=== PATIENT | female | born 1975 | race Caucasian/White ===

== ENCOUNTER 2018-05-20 20:17 | Emergency (ER) | payer OTHER ==
[2018-05-20] MEDS ORDERED: Lidocaine 1% 20 ML MDV INJECT ONE (20:33)
[2018-05-20] MEDS ORDERED: Bacitracin/Neomycin/Polymyxin B Oint 0.9 GM U/D Packet TOP ONE (20:51)
[2018-05-20] MEDS ORDERED: Diphtheria,Pertussis(Acell),Tetanus Vaccine 0.5 ML Syringe IM ONE (20:55)
--- NOTE | 2018-05-20 21:00 | EDM.PDOC ---
ED HPI GENERAL MEDICAL PROBLEM - General Chief Complaint: General Stated Complaint: lip ring stuck Time Seen by Provider: 05/20/18 20:26 Source of Information: Reports: Patient History Limitations: Reports: No Limitations - History of Present Illness INITIAL COMMENTS - FREE TEXT/NARRATIVE: Patient presents to ER with concerns that the post/bead from her lip piercing is now stuck in her lip. Was eating supper tonight when a piece of the piercing came off the back and the stud portion of it got caught in her lip. She has tried to push it out at work and has not been successful. Onset: Today, Sudden Duration: Hour(s): Location: Reports: Face Quality: Reports: Ache Severity: Mild Lip Pain Score (Numeric/FACES): 4 - Related Data Allergies Allergy/AdvReac Type Severity Reaction Status Date / Time amoxicillin [From Augmentin] Allergy Diarrhea Verified 05/20/18 20:20 clavulanic acid Allergy Diarrhea Verified 05/20/18 20:20 [From Augmentin] codeine Allergy Shortness Verified 05/20/18 20:20 of Breath Home Meds: Home Meds Ascorbate Calcium [Vitamin C] 1 tab PO DAILY 05/20/18 [History] Cholecalciferol (Vitamin D3) [Vitamin D3] 5,000 units PO DAILY 05/20/18 [History ] Cranberry 500 mg PO DAILY 05/20/18 [History] FLUoxetine HCl [Fluoxetine HCl] 20 mg PO DAILY 05/20/18 [History] L.acidoph,Paracasei, B.lactis [Probiotic] 1 cap PO DAILY 05/20/18 [History] Magnesium 400 mg PO DAILY 05/20/18 [History] Multivitamin with Minerals [Hair, Skin and Nails] 1 tab PO DAILY 05/20/18 [ History] Propranolol [Inderal LA] 60 mg PO DAILY 05/20/18 [History] Vitamin B Complex 1 cap PO DAILY 05/20/18 [History] Past Medical History Neurological History: Reports: Migraines Psychiatric History: Reports: Anxiety, Depression - Past Surgical History GI Surgical History: Reports: Cholecystectomy, Hernia Repair/Other Female Surgical History: Reports: Hysterectomy, Tubal Ligation Social & Family History - Family History Family Medical History: Noncontributory - Tobacco Use Smoking Status *Q: Current Every Day Smoker Years of Tobacco use: 34 Packs/Tins Daily: 0 - Caffeine Use Caffeine Use: Reports: Coffee, Soda ED ROS GENERAL - Review of Systems Review Of Systems: See Below Constitutional: Reports: No Symptoms HEENT: Reports: Other (foreign body in lip) Respiratory: Reports: No Symptoms Cardiovascular: Reports: No Symptoms Endocrine: Reports: No Symptoms GI/Abdominal: Reports: No Symptoms : Reports: No Symptoms ED EXAM, GENERAL - Physical Exam Exam: See Below Exam Limited By: No Limitations General Appearance: Alert, WD/WN, No Apparent Distress Throat/Mouth: Other (patient has noted hole to inner/outer lip from piercing. Can feel foreign object with palpation. ) ED GENERAL MEDICAL PROCEDURES - Additional/Other Procedure(s) Other (Free Text) Procedure(s): Lidocaine 1%, 0.5 ml injected in to lip. Unable to retrieve the piercing. Small incision made with 11 blade scalpel. Did retrieve the post with some difficulty. One suture with 6-0 nylon placed to lip region. patient tolerated well. Course - Vital Signs Last Recorded V/S: Last Vital Signs Temp 98.4 F 05/20/18 20:18 Pulse 78 05/20/18 20:18 Resp 16 05/20/18 20:18 BP 121/77 05/20/18 20:18 Pulse Ox 100 05/20/18 20:18 - Orders/Labs/Meds Orders: Active Orders 24 hr Category Date Time Status Vaccines to be Administered [RC] PER UNIT ROUTINE Care 05/20/18 20:55 Ordered Meds: Medications Discontinued Medications Generic Name Dose Route Start Last Admin Trade Name Freq PRN Reason Stop Dose Admin Diphtheria/Tetanus/Acell Pertussis 0.5 ml 05/20/18 20:55 Adacel IM 05/20/18 20:56 .ONCE ONE Lidocaine HCl 20 ml 05/20/18 20:33 05/20/18 20:34 Xylocaine 1% INJECT 05/20/18 20:34 20 ml ONETIME ONE Administration Neomycin/Polymyxin/Bacitracin 1 each 05/20/18 20:51 05/20/18 20:54 Triple Antibiotic Oint TOP 05/20/18 20:52 1 each ONETIME ONE Administration Departure - Departure Time of Disposition: 21:00 Disposition: Home, Self-Care 01 Condition: Good Clinical Impression: Foreign body (FB) in soft tissue - Discharge Information *PRESCRIPTION DRUG MONITORING PROGRAM REVIEWED*: No *COPY OF PRESCRIPTION DRUG MONITORING REPORT IN PATIENT KIERRA: No Forms: ED Department Discharge Additional Instructions: 1. Keep wound clean and dry 2. Triple antibiotic ointment to affected area 3. Suture removal in 5 days 4. Call or follow up with any concerns. - My Orders Last 24 Hours: My Active Orders 05/20/18 20:55 Vaccines to be Administered [RC] PER UNIT ROUTINE - Assessment/Plan Last 24 Hours: My Active Orders 05/20/18 20:55 Vaccines to be Administered [RC] PER UNIT ROUTINE
== END 2018-05-20 21:15 | disposition home or self-care (01) ==
LOC: CC.ED 20:17
DX: M79.5 Residual foreign body in soft tissue (principal); F17.200 Nicotine dependence, unspecified, uncomplicated; Z79.899 Other long term (current) drug therapy; Z90.49 Acquired absence of other specified parts of digestive tract; Z90.710 Acquired absence of both cervix and uterus; Z98.51 Tubal ligation status
CPT/HCPCS: 10120; 90471; 90715; 96372; 99283

== ENCOUNTER 2018-06-01 17:25 | Observation (INO) | payer OTHER ==
[2018-06-01 18:08] LABS: CHLORIDE,CL 100 mEq/L (98-106); SODIUM,NA 136 mEq/L (136-145)
--- NOTE | 2018-06-01 18:16 | EDM.PDOC ---
ED HPI GENERAL MEDICAL PROBLEM - General Chief Complaint: Gastrointestinal Problem Stated Complaint: FLU? Time Seen by Provider: 06/01/18 17:58 Source of Information: Reports: Patient History Limitations: Reports: No Limitations - History of Present Illness INITIAL COMMENTS - FREE TEXT/NARRATIVE: Radha is a 42 yo female who presents to the ED via private vehicle with concerns of nausea, vomiting and diarrhea. She states she has been having diarrhea for the last few days and initially thought it was secondary to IBS. Admits this morning she woke up feeling nauseated. She did go to work today and ended up having diarrhea around 3:00pm. States she has a lot of body aches with it as well. She has some mild diffuse abdominal discomfort but she never thought anything of it. States she hasn't had any respiratory symptoms. Has been really tired and fatigued. Denies any chance of with history of hysterectomy. No urinary symptoms. Last meal included oreo thins around 3:00pm otherwise haven't had anything to eat all day. has been drinking water and a couple sips of coke today. Generalized Pain Score (Numeric/FACES): 6 - Related Data Allergies Allergy/AdvReac Type Severity Reaction Status Date / Time amoxicillin [From Augmentin] Allergy Diarrhea Verified 06/01/18 17:42 clavulanic acid Allergy Diarrhea Verified 06/01/18 17:42 [From Augmentin] codeine Allergy Shortness Verified 06/01/18 17:42 of Breath Home Meds: Home Meds Ascorbate Calcium [Vitamin C] 1 tab PO DAILY 05/20/18 [History] Cholecalciferol (Vitamin D3) [Vitamin D3] 5,000 units PO DAILY 05/20/18 [History ] Cranberry 1,500 mg PO DAILY 05/20/18 [History] FLUoxetine HCl [Fluoxetine HCl] 20 mg PO DAILY 05/20/18 [History] L.acidoph,Paracasei, B.lactis [Probiotic] 1 cap PO DAILY 05/20/18 [History] Magnesium 400 mg PO DAILY 05/20/18 [History] Multivitamin with Minerals [Hair, Skin and Nails] 1 tab PO DAILY 05/20/18 [ History] Propranolol [Inderal LA] 60 mg PO DAILY 05/20/18 [History] Vitamin B Complex 1 cap PO DAILY 05/20/18 [History] Past Medical History Neurological History: Reports: Migraines Psychiatric History: Reports: Anxiety, Depression - Past Surgical History GI Surgical History: Reports: Cholecystectomy, Hernia Repair/Other Female Surgical History: Reports: Hysterectomy, Tubal Ligation Social & Family History - Family History Family Medical History: Noncontributory - Tobacco Use Smoking Status *Q: Current Every Day Smoker Years of Tobacco use: 34 Packs/Tins Daily: 0.2 - Caffeine Use Caffeine Use: Reports: Coffee, Soda - Recreational Drug Use Recreational Drug Use: No ED ROS GENERAL - Review of Systems Review Of Systems: See Below Constitutional: Reports: Chills, Fatigue, Decreased Appetite. Denies: Fever HEENT: Reports: No Symptoms Respiratory: Reports: No Symptoms Cardiovascular: Reports: No Symptoms GI/Abdominal: Reports: Abdominal Pain, Diarrhea, Nausea, Vomiting. Denies: Bloody Stool : Reports: No Symptoms Musculoskeletal: Reports: No Symptoms Skin: Reports: No Symptoms ED EXAM, GI/ABD - Physical Exam Exam: See Below Exam Limited By: No Limitations General Appearance: Alert, Mild Distress Ears: Normal External Exam, Normal Canal, Hearing Grossly Normal, Normal TMs Nose: Normal Inspection, Normal Mucosa, No Blood Throat/Mouth: Normal Inspection, Normal Lips, Normal Teeth, Normal Gums, Normal Oropharynx, No Airway Compromise Head: Atraumatic, Normocephalic Neck: Normal Inspection, Supple, Non-Tender Respiratory/Chest: No Respiratory Distress, Lungs Clear, Normal Breath Sounds, No Accessory Muscle Use Cardiovascular: Regular Rate, Rhythm, No Murmur GI/Abdominal Exam: Normal Bowel Sounds, Soft, No Organomegaly, No Mass, Pelvis Stable, Guarding (RLQ), Tender (RLQ), Other (positive McBurney's point) Extremities: Normal Inspection, No Pedal Edema Neurological: Alert, Oriented, Normal Cognition Psychiatric: Normal Affect, Normal Mood Skin Exam: Warm, Dry, Intact, Normal Color, No Rash Course - Vital Signs Last Recorded V/S: Last Vital Signs Temp 98.4 F 06/01/18 18:26 Pulse 97 06/01/18 17:33 Resp 16 06/01/18 17:33 BP 121/84 06/01/18 17:33 Pulse Ox 100 06/01/18 17:33 - Orders/Labs/Meds Orders: Active Orders 24 hr Category Date Time Status Abdomen Pelvis w Cont [CT] Routine Exams 06/01/18 18:09 Ordered Labs: Laboratory Tests 06/01/18 06/01/18 06/01/18 Range/Units 17:37 17:40 17:40 WBC 15.5 H (5.0-10.0) 10^3/uL RBC 4.83 (4.00-5.50) 10^6/uL Hgb 14.8 (12.0-16.0) g/dL Hct 43.0 (37.0-47.0) % MCV 89.0 (82.0-94.0) fL MCH 30.6 (27.0-32.0) pg MCHC 34.4 (33.0-38.0) g/dL RDW Coeff of Tana 12.5 (11.0-15.0) % Plt Count 233 (150-400) 10^3/uL Add Manual Diff Yes Neutrophils % (Manual) 87 H (35-85) % Band Neutrophils % 4 (0-5) % Lymphocytes % (Manual) 3 L (21-55) % Monocytes % (Manual) 5 (2-12) % Eosinophils % (Manual) 1 (0-5) % Sodium 136 (136-145) mEq/L Potassium 3.6 (3.5-5.0) mEq/L Chloride 100 (98-106) mEq/L Carbon Dioxide 25 (21-32) mmol/L BUN 18 D (7-18) mg/dL Creatinine 0.9 (0.6-1.0) mg/dL Est Cr Clr Drug Dosing 57.30 mL/min Estimated GFR (MDRD) > 60 (>=60) mL/min Glucose 102 H (75-99) mg/dL Calcium 8.8 (8.4-10.1) mg/dL Total Bilirubin 1.0 (0.0-1.0) mg/dL AST 19 (15-37) U/L ALT 28 (12-78) U/L Alkaline Phosphatase 105 (46-116) U/L C-Reactive Protein 0.3 (0.2-0.8) mg/dL Total Protein 8.0 (6.4-8.2) g/dL Albumin 3.9 (3.4-5.0) g/dL Amylase 44 (25-115) U/L Urine Color Yellow (YELLOW) Urine Appearance Clear (CLEAR) Urine pH 5.0 (4.5-8.0) Ur Specific [place] 1.025 H (1.003-1.020) Urine Protein Negative (NEGATIVE) mg/dL Urine Glucose (UA) Negative (NEGATIVE) mg/dL Urine Ketones Trace H (NEGATIVE) mg/dL Urine Occult Blood Trace-lysed H (NEGATIVE) Urine Nitrite Negative (NEGATIVE) Urine Bilirubin Negative (NEGATIVE) Urine Urobilinogen 0.2 (0.2-1.0) EU/dL Ur Leukocyte Esterase Negative (NEGATIVE) Urine RBC 0-5 (0-5) /HPF Urine WBC Not seen (0-5) /HPF Ur Epithelial Cells Few H (NOT SEEN) /HPF Urine Mucus Moderate H (NOT SEEN) /HPF Meds: Medications Discontinued Medications Generic Name Dose Route Start Last Admin Trade Name Freq PRN Reason Stop Dose Admin Iopamidol 100 ml 06/01/18 18:27 06/01/18 18:28 Isovue-300 (61%) IVPUSH 06/01/18 18:28 100 ml ONETIME ONE Administration - Re-Assessments/Exams Free Text/Narrative Re-Assessment/Exam: Reviewed labs and did show leukocytosis. CRP was normal. Urinalysis showed no sign of infection. With elevated WBC and RLQ pain will proceed with CT scan of the abdomen/pelvis to r/o appendicitis and look for any further causes of abdominal discomfort, diarrhea and nausea. Departure - Departure Time of Disposition: 19:43 Disposition: Refer to Observation Clinical Impression: Ileus - Discharge Information Forms: ED Department Discharge - Problem List & Annotations (1) Ileus SNOMED Code(s): 135634237 Code(s): K56.7 - ILEUS, UNSPECIFIED Status: Acute Current Visit: Yes - My Orders Last 24 Hours: My Active Orders 06/01/18 18:09 Abdomen Pelvis w Cont [CT] Routine - Assessment/Plan Admission H&P: Please use this note as an admission H&P Last 24 Hours: My Active Orders 06/01/18 18:09 Abdomen Pelvis w Cont [CT] Routine Plan: Radiologist consulted and stated findings involving the small bowel suggest a generalized ileus pattern. Will admit to Dr. Tracy's services under observation for IV fluids and to remain NPO. Dr. Tracy contacted for admission.
[2018-06-01] MEDS ORDERED: Iopamidol 612 MG/ML 100 ML Bottle IVPUSH ONE (18:27)
[2018-06-01] MEDS ORDERED: Acetaminophen 325 MG Tab PO PRN (20:18)
[2018-06-01] MEDS ORDERED: Ondansetron 4 MG/2 ML SDV IV PRN (20:18)
[2018-06-01] MEDS: Lactated Ringers 1,000 ML IV SCH (20:43)
[2018-06-01] MEDS: Ibuprofen 200 MG Tab PO PRN (20:47)
[2018-06-02] MEDS: Lactated Ringers 1,000 ML IV SCH ×3 (04:41→19:27)
[2018-06-02] MEDS: Ibuprofen 200 MG Tab PO PRN (04:46)
[2018-06-02 07:28] LABS: CHLORIDE,CL 106 mEq/L (98-106); SODIUM,NA 141 mEq/L (136-145)
[2018-06-02] MEDS: FLUOXETINE 20 MG PO SCH (08:29)
[2018-06-02] MEDS: PROPRANOLOL 60 MG PO SCH (08:29)
--- NOTE | 2018-06-02 08:52 | PCM.PN ---
- General Info Date of Service: 06/02/18 Admission Dx/Problem (Free Text): Ileus Functional Status: Reports: Pain Controlled. Denies: Tolerating Diet, Ambulating - Review of Systems General: Reports: Fatigue, Malaise. Denies: Fever, Weakness HEENT: Reports: No Symptoms Pulmonary: Denies: Shortness of Breath, Cough Cardiovascular: Denies: Chest Pain, Edema, Lightheadedness Gastrointestinal: Reports: Abdominal Pain, Nausea. Denies: Diarrhea, Vomiting Genitourinary: Reports: No Symptoms Musculoskeletal: Reports: Joint Pain Skin: Reports: No Symptoms Neurological: Reports: No Symptoms - Patient Data Vitals - Most Recent: Last Vital Signs Temp 99.4 F 06/02/18 08:00 Pulse 70 06/02/18 08:00 Resp 16 06/02/18 08:00 BP 109/68 06/02/18 08:00 Pulse Ox 98 06/02/18 08:00 Weight - Most Recent: 109 lb 12.8 oz I&O - Last 24 Hours: Intake & Output 06/01/18 06/02/18 06/02/18 22:59 06:59 14:59 Intake Total 996 Output Total 1200 Balance -204 Lab Results Last 24 Hours: Laboratory Results - last 24 hr 06/01/18 06/01/18 06/01/18 Range/Units 17:37 17:40 17:40 WBC 15.5 H (5.0-10.0) 10^3/uL RBC 4.83 (4.00-5.50) 10^6/uL Hgb 14.8 (12.0-16.0) g/dL Hct 43.0 (37.0-47.0) % MCV 89.0 (82.0-94.0) fL MCH 30.6 (27.0-32.0) pg MCHC 34.4 (33.0-38.0) g/dL RDW Coeff of Tana 12.5 (11.0-15.0) % Plt Count 233 (150-400) 10^3/uL Neut % (Auto) (35-85) % Lymph % (Auto) (10-55) % [place] % (Auto) (0-16) % Eos % (Auto) (0-5) % Baso % (Auto) (0-3) % Neut # (Auto) (1.80-7.00) 10^3/uL Lymph # (Auto) (1.00-4.80) 10^3/uL [place] # (Auto) (0.00-0.80) 10^3/uL Eos # (Auto) (0.00-0.45) 10^3/uL Baso # (Auto) 10^3/uL Add Manual Diff Yes Neutrophils % (Manual) 87 H (35-85) % Band Neutrophils % 4 (0-5) % Lymphocytes % (Manual) 3 L (21-55) % Monocytes % (Manual) 5 (2-12) % Eosinophils % (Manual) 1 (0-5) % Sodium 136 (136-145) mEq/L Potassium 3.6 (3.5-5.0) mEq/L Chloride 100 (98-106) mEq/L Carbon Dioxide 25 (21-32) mmol/L BUN 18 D (7-18) mg/dL Creatinine 0.9 (0.6-1.0) mg/dL Est Cr Clr Drug Dosing 57.30 mL/min Estimated GFR (MDRD) > 60 (>=60) mL/min Glucose 102 H (75-99) mg/dL Calcium 8.8 (8.4-10.1) mg/dL Total Bilirubin 1.0 (0.0-1.0) mg/dL AST 19 (15-37) U/L ALT 28 (12-78) U/L Alkaline Phosphatase 105 (46-116) U/L C-Reactive Protein 0.3 (0.2-0.8) mg/dL Total Protein 8.0 (6.4-8.2) g/dL Albumin 3.9 (3.4-5.0) g/dL Amylase 44 (25-115) U/L Urine Color Yellow (YELLOW) Urine Appearance Clear (CLEAR) Urine pH 5.0 (4.5-8.0) Ur Specific [place] 1.025 H (1.003-1.020) Urine Protein Negative (NEGATIVE) mg/dL Urine Glucose (UA) Negative (NEGATIVE) mg/dL Urine Ketones Trace H (NEGATIVE) mg/dL Urine Occult Blood Trace-lysed H (NEGATIVE) Urine Nitrite Negative (NEGATIVE) Urine Bilirubin Negative (NEGATIVE) Urine Urobilinogen 0.2 (0.2-1.0) EU/dL Ur Leukocyte Esterase Negative (NEGATIVE) Urine RBC 0-5 (0-5) /HPF Urine WBC Not seen (0-5) /HPF Ur Epithelial Cells Few H (NOT SEEN) /HPF Urine Mucus Moderate H (NOT SEEN) /HPF 06/02/18 06/02/18 Range/Units 06:55 06:55 WBC 7.6 (5.0-10.0) 10^3/uL RBC 4.25 (4.00-5.50) 10^6/uL Hgb 13.0 (12.0-16.0) g/dL Hct 38.0 (37.0-47.0) % MCV 89.4 (82.0-94.0) fL MCH 30.6 (27.0-32.0) pg MCHC 34.2 (33.0-38.0) g/dL RDW Coeff of Tana 12.5 (11.0-15.0) % Plt Count 196 (150-400) 10^3/uL Neut % (Auto) 76.8 (35-85) % Lymph % (Auto) 10.5 (10-55) % [place] % (Auto) 11.0 (0-16) % Eos % (Auto) 1.6 (0-5) % Baso % (Auto) 0.1 (0-3) % Neut # (Auto) 5.87 (1.80-7.00) 10^3/uL Lymph # (Auto) 0.80 L (1.00-4.80) 10^3/uL [place] # (Auto) 0.84 H (0.00-0.80) 10^3/uL Eos # (Auto) 0.12 (0.00-0.45) 10^3/uL Baso # (Auto) 0.01 10^3/uL Add Manual Diff Neutrophils % (Manual) (35-85) % Band Neutrophils % (0-5) % Lymphocytes % (Manual) (21-55) % Monocytes % (Manual) (2-12) % Eosinophils % (Manual) (0-5) % Sodium 141 (136-145) mEq/L Potassium 4.0 (3.5-5.0) mEq/L Chloride 106 (98-106) mEq/L Carbon Dioxide 28 (21-32) mmol/L BUN 10 (7-18) mg/dL Creatinine 0.8 (0.6-1.0) mg/dL Est Cr Clr Drug Dosing 64.46 mL/min Estimated GFR (MDRD) > 60 (>=60) mL/min Glucose 90 (75-99) mg/dL Calcium 8.4 (8.4-10.1) mg/dL Total Bilirubin (0.0-1.0) mg/dL AST (15-37) U/L ALT (12-78) U/L Alkaline Phosphatase (46-116) U/L C-Reactive Protein 3.0 H (0.2-0.8) mg/dL Total Protein (6.4-8.2) g/dL Albumin (3.4-5.0) g/dL Amylase (25-115) U/L Urine Color (YELLOW) Urine Appearance (CLEAR) Urine pH (4.5-8.0) Ur Specific [place] (1.003-1.020) Urine Protein (NEGATIVE) mg/dL Urine Glucose (UA) (NEGATIVE) mg/dL Urine Ketones (NEGATIVE) mg/dL Urine Occult Blood (NEGATIVE) Urine Nitrite (NEGATIVE) Urine Bilirubin (NEGATIVE) Urine Urobilinogen (0.2-1.0) EU/dL Ur Leukocyte Esterase (NEGATIVE) Urine RBC (0-5) /HPF Urine WBC (0-5) /HPF Ur Epithelial Cells (NOT SEEN) /HPF Urine Mucus (NOT SEEN) /HPF [place]wn Results Last 24 Hours: Microbiology 06/01/18 17:40 Influenza Type A Antigen Screen - Final Nasal, Unspecified NEGATIVE INFLUENZA A VIRUS AG Influenza Type B Antigen Screen - Final NEGATIVE INFLUENZA B VIRUS AG Med Orders - Current: Current Medications Acetaminophen (Tylenol) 650 mg PO Q4H PRN PRN Reason: Pain (Mild 1-3)/fever Fluoxetine HCl (Prozac) 20 mg PO DAILY [facility] Last Admin: 06/02/18 08:29 Dose: 20 mg Lactated Ringer's (Ringers, Lactated) 1,000 mls @ 125 mls/hr IV ASDIRECTED [facility] Last Admin: 06/02/18 04:41 Dose: 125 mls/hr Ibuprofen (Motrin) 400 mg PO Q6H PRN PRN Reason: Pain (mild 1-3) Last Admin: 06/02/18 04:46 Dose: 400 mg Ondansetron HCl (Zofran) 4 mg IV Q4H PRN PRN Reason: Nausea/Vomiting Last Admin: 06/01/18 20:44 Dose: 4 mg Propranolol HCl (Inderal La) 60 mg PO DAILY [facility] Last Admin: 06/02/18 08:29 Dose: 60 mg Discontinued Medications Iopamidol (Isovue-300 (61%)) 100 ml IVPUSH ONETIME ONE Stop: 06/01/18 18:28 Last Admin: 06/01/18 18:28 Dose: 100 ml - Exam General: Alert, Oriented HEENT: Mucous Membr. Moist/[place] Neck: Supple Lungs: Clear to Auscultation, Normal Respiratory Effort Cardiovascular: Regular Rate, Regular Rhythm GI/Abdominal Exam: Normal Bowel Sounds, Soft, Non-Tender Extremities: Normal Inspection, No Pedal Edema Skin: Warm, Dry Neurological: No New Focal Deficit - Problem List & Annotations (1) Ileus SNOMED Code(s): 251311019 Code(s): K56.7 - ILEUS, UNSPECIFIED Status: Acute Priority: High Current Visit: Yes - Problem List Review Problem List Initiated/Reviewed/Updated: Yes - My Orders Last 24 Hours: My Active Orders 06/02/18 08:34 Ambulate [RC] ASDIRECTED 06/02/18 Breakfast Clear Liquid Diet [DIET] - Assessment Assessment:: Ileus - Plan Plan:: Patient feeling somewhat better this am. States still sore. Low grade fevers. Has not yet passed flatus. No diarrhea this am. Has been kept NPO since admit. Does still get nauseated at times, groggy this am. Labs today show normal WBC of 7.6, CRP of 3.0. Will start clear liquids and see how she tolerates them. Ambulate in halls. Probable discharge home tomorrow.
[2018-06-03] MEDS: Lactated Ringers 1,000 ML IV SCH (03:28)
[2018-06-03] MEDS: PROPRANOLOL 60 MG PO SCH (07:46)
[2018-06-03] MEDS: FLUOXETINE 20 MG PO SCH (07:46)
--- NOTE | 2018-06-03 14:08 | PCM.DCSUM1 ---
Discharge Summary - Hospital Course Free Text/Narrative:: Patient presented to ER with concerns of nausea, vomiting and diarrhea. She has a history of IBS so states "my stomach never feels good" but had been having diarrhea for the last few days prior. Today was nauseated, body aches, diffuse abdominal discomfort. No respiratory symptoms. No fever or fatigue. No urinary symptoms. Unable to eat or drink throughout the day due to nausea. Labs did show leukocytosis, CRP normal. UA negative. CT scan of the abdomen done to rule out appendicitis. Findings suggest ileus, inflammatory changes in the small bowel. Diagnosis: Stroke: No Modified [place] Scale: No Symptoms at All Modified Nilda Scale Score: 0 - Discharge Data Discharge Date: 06/03/18 Discharge Disposition: Home, Self-Care 01 Condition: Good - Discharge Diagnosis/Problem(s) (1) Ileus SNOMED Code(s): 840538414 ICD Code: K56.7 - ILEUS, UNSPECIFIED Status: Acute Priority: High - Patient Summary/Data Complications: none Hospital Course: Patient doing well today. Labs have normalized, WBC down to 7.6. CRP negative. Is passing flatus, small loose stools. Minimal abdominal pain. Tolerated breakfast today. Afebrile. Stool samples negative. Abdomen is soft , nontender, nondistended today. As her CT did show concern for inflammatory changes in the small bowel with concerns could be related to Crohn's, will arrange for GI consult on discharge from hospital. Follow up next week for hospital recheck. - Patient Instructions Diet: Usual Diet as Tolerated Activity: As Tolerated - Discharge Plan *PRESCRIPTION DRUG MONITORING PROGRAM REVIEWED*: No *COPY OF PRESCRIPTION DRUG MONITORING REPORT IN PATIENT KIERRA: No Home Medications: Home Meds Ascorbate Calcium [Vitamin C] 1 tab PO DAILY 05/20/18 [History] Cholecalciferol (Vitamin D3) [Vitamin D3] 5,000 units PO DAILY 05/20/18 [History ] Cranberry 1,500 mg PO DAILY 05/20/18 [History] FLUoxetine HCl [Fluoxetine HCl] 20 mg PO DAILY 05/20/18 [History] L.acidoph,Paracasei, B.lactis [Probiotic] 1 cap PO DAILY 05/20/18 [History] Magnesium 400 mg PO DAILY 05/20/18 [History] Multivitamin with Minerals [Hair, Skin and Nails] 1 tab PO DAILY 05/20/18 [ History] Propranolol [Inderal LA] 60 mg PO DAILY 05/20/18 [History] Vitamin B Complex 1 cap PO DAILY 05/20/18 [History] Forms: ED Department Discharge Referrals: Eda Castanon PA [Primary Care Provider] - (hospital follow up in 7 days ) - Discharge Summary/Plan Comment DC Time >30 min.: No - General Info Date of Service: 06/03/18 Admission Dx/Problem (Free Text: Ileus Functional Status: Reports: Pain Controlled, Tolerating Diet, Ambulating - Review of Systems General: Denies: Fever, Weakness, Fatigue, Malaise HEENT: Reports: No Symptoms Pulmonary: Denies: Shortness of Breath, Cough Cardiovascular: Denies: Chest Pain, Edema, Lightheadedness Gastrointestinal: Reports: Diarrhea. Denies: Abdominal Pain, Nausea, Vomiting Genitourinary: Reports: No Symptoms Musculoskeletal: Reports: No Symptoms Skin: Reports: No Symptoms Neurological: Reports: No Symptoms - Patient Data Vitals - Most Recent: Last Vital Signs Temp 98.1 F 06/03/18 07:54 Pulse 63 06/03/18 07:54 Resp 16 06/03/18 07:54 BP 108/64 06/03/18 07:54 Pulse Ox 99 06/03/18 07:54 Weight - Most Recent: 109 lb 12.8 oz I&O - Last 24 hours: Intake & Output 06/02/18 06/03/18 06/03/18 22:59 06:59 14:59 Intake Total 1306 1300 Output Total 3400 2300 Balance -2094 -1000 Med Orders - Current: Current Medications Discontinued Medications Acetaminophen (Tylenol) 650 mg PO Q4H PRN PRN Reason: Pain (Mild 1-3)/fever Fluoxetine HCl (Prozac) 20 mg PO DAILY [facility] Last Admin: 06/03/18 07:46 Dose: 20 mg Lactated Ringer's (Ringers, Lactated) 1,000 mls @ 125 mls/hr IV ASDIRECTED [facility] Last Admin: 06/03/18 03:28 Dose: 125 mls/hr Ibuprofen (Motrin) 400 mg PO Q6H PRN PRN Reason: Pain (mild 1-3) Last Admin: 06/02/18 04:46 Dose: 400 mg Iopamidol (Isovue-300 (61%)) 100 ml IVPUSH ONETIME ONE Stop: 06/01/18 18:28 Last Admin: 06/01/18 18:28 Dose: 100 ml Ondansetron HCl (Zofran) 4 mg IV Q4H PRN PRN Reason: Nausea/Vomiting Last Admin: 06/01/18 20:44 Dose: 4 mg Propranolol HCl (Inderal La) 60 mg PO DAILY [facility] Last Admin: 06/03/18 07:46 Dose: 60 mg - Exam General: Reports: Alert, Oriented HEENT: Reports: Mucous Membr. Moist/[place] Neck: Reports: Supple Lungs: Reports: Clear to Auscultation, Normal Respiratory Effort Cardiovascular: Reports: Regular Rate, Regular Rhythm GI/Abdominal Exam: Normal Bowel Sounds, Soft, Non-Tender Extremities: Normal Inspection, No Pedal Edema Skin: Reports: Warm, Dry Neurological: Reports: No New Focal Deficit
== END 2018-06-03 09:50 | disposition home or self-care (01) ==
LOC: CC.ED 17:25 → CC.MS 19:47 → UNDOADMOB 19:47 → CC.MS 19:48
PROVIDERS: ADMIT Physician Assistant Medical; ATTEND Family Medicine
DX: K56.7 Ileus, unspecified (principal); R19.7 Diarrhea, unspecified; F17.200 Nicotine dependence, unspecified, uncomplicated; Z79.899 Other long term (current) drug therapy
CPT/HCPCS: 36415; 74177; 80048; 80053; 81001; 82150; 85025; 86140; 87804; 96361; 96374; 99285-25; A9270-GY; G0378; J2405; J7120; Q9967

== ENCOUNTER 2021-02-02 15:31 | Emergency (ER) | payer OTHER ==
[2021-02-02] MEDS ORDERED: Take Home: Cefuroxime 250 MG Tab, 2 Tab Pack PO ONE (16:03)
--- NOTE | 2021-02-02 16:06 | EDM.PDOC ---
ED HPI GENERAL MEDICAL PROBLEM - General Chief Complaint: General Stated Complaint: respiratory c/o Time Seen by Provider: 02/01/21 16:35 Source of Information: Reports: Patient History Limitations: Reports: No Limitations - History of Present Illness INITIAL COMMENTS - FREE TEXT/NARRATIVE: Radha is 45 year old female presents to ER with complaints of increased sinus pressure, sore throat and a tight chest. Has a tight cough, productive at times. Low grade fevers. Has been nauseated, appetite decreased. No vomiting or diarrhea. Denies shortness of breath but admits feels winded at times with exertion. No wheezing. Was exposed to RSV from her grandchild. has had her covid vaccine. Onset: Gradual Duration: Day(s):, Getting Worse Location: Reports: Head, Chest Quality: Reports: Ache Severity: Moderate Improves with: Reports: Medication Associated Symptoms: Reports: Cough, cough w sputum, Fever/Chills, Loss of Appetite, Malaise, Nausea/Vomiting, Shortness of Breath. Denies: Confusion, Chest Pain Treatments CREDENTIALING SPECIALIST: Reports: Acetaminophen - Related Data Allergies Allergy/AdvReac Type Severity Reaction Status Date / Time amoxicillin [From Augmentin] Allergy Diarrhea Verified 02/02/21 15:36 clavulanic acid Allergy Diarrhea Verified 02/02/21 15:36 [From Augmentin] codeine Allergy Shortness Verified 02/02/21 15:36 of Breath Home Meds: Home Meds Ascorbate Calcium [Vitamin C] 1 tab PO DAILY 05/20/18 [History] Cholecalciferol (Vitamin D3) [Vitamin D3] 5,000 units PO DAILY 05/20/18 [History] Cranberry 1,500 mg PO DAILY 05/20/18 [History] FLUoxetine HCl [Fluoxetine HCl] 20 mg PO DAILY 05/20/18 [History] L.acidoph,Paracasei, B.lactis [Probiotic] 1 cap PO DAILY 05/20/18 [History] Magnesium 400 mg PO DAILY 05/20/18 [History] Multivitamin with Minerals [Hair, Skin and Nails] 1 tab PO DAILY 05/20/18 [History] Propranolol [Inderal LA] 60 mg PO DAILY 05/20/18 [History] Vitamin B Complex 1 cap PO DAILY 05/20/18 [History] Cefuroxime [Ceftin] 250 mg PO BID #16 tab 02/02/21 [Rx] Past Medical History Neurological History: Reports: Migraines Psychiatric History: Reports: Anxiety, Depression - Past Surgical History GI Surgical History: Reports: Cholecystectomy, Hernia Repair/Other Female Surgical History: Reports: Hysterectomy, Tubal Ligation Social & Family History - Family History Family Medical History: No Pertinent Family History - Tobacco Use Tobacco Use Status *Q: Unknown Ever Used Tobacco - Caffeine Use Caffeine Use: Reports: Coffee, Soda ED ROS GENERAL - Review of Systems Review Of Systems: See Below Constitutional: Reports: Fever, Chills, Malaise, Fatigue, Decreased Appetite HEENT: Reports: Rhinitis, Sinus Problem, Throat Pain. Denies: Ear Pain Respiratory: Reports: Cough, Other (shortness of breath with activity). Denies: Shortness of Breath Cardiovascular: Reports: No Symptoms Endocrine: Reports: Fatigue GI/Abdominal: Reports: Nausea. Denies: Abdominal Pain, Constipation, Diarrhea, Vomiting : Reports: No Symptoms Musculoskeletal: Reports: No Symptoms Skin: Reports: No Symptoms Neurological: Reports: Headache Psychiatric: Reports: No Symptoms ED EXAM, GENERAL - Physical Exam Exam: See Below Exam Limited By: No Limitations General Appearance: Alert, WD/WN, No Apparent Distress Ears: Normal External Exam, Normal TMs Nose: Normal Inspection, Nasal Drainage, Other (nasal mucosa is erythematous and excoriated) Throat/Mouth: Normal Inspection, Normal Oropharynx Head: Normocephalic Neck: Normal Inspection, Supple, Non-Tender Respiratory/Chest: No Respiratory Distress, Lungs Clear, Normal Breath Sounds Cardiovascular: Regular Rate, Rhythm Neurological: Alert, Oriented Skin Exam: Warm, Dry Course - Orders/Labs/Meds Labs: Laboratory Tests 02/02/21 Range/Units 15:35 SARS CoV-2 RNA Rapid JOELLE Negative (NEGATIVE) Meds: Medications Discontinued Medications Generic Name Dose Route Start Last Admin Trade Name Freq PRN Reason Stop Dose Admin Cefuroxime Axetil 2 packet 02/02/21 16:03 Take Home: Cefuroxime 250 Mg Tab, 2 Tab Pack PO 02/02/21 16:04 ONETIME ONE Departure - Departure Time of Disposition: 16:02 Disposition: Home, Self-Care 01 Condition: Good Clinical Impression: Acute maxillary sinusitis - Discharge Information *PRESCRIPTION DRUG MONITORING PROGRAM REVIEWED*: No *COPY OF PRESCRIPTION DRUG MONITORING REPORT IN PATIENT KIERRA: No Prescriptions: Cefuroxime [Ceftin] 250 mg PO BID #16 tab Instructions: Sinusitis, Adult, [id number] Forms: ED Department Discharge Additional Instructions: 1. Push fluids 2. Alternate tylenol with ibuprofen for any fever or discomfort 3. Ceftin 250 mg BID for 10 days 4. Decongestants as directed 5. Follow up if any persisting concerns.
== END 2021-02-02 16:56 | disposition home or self-care (01) ==
LOC: CC.ED 16:56
DX: J01.00 Acute maxillary sinusitis, unspecified (principal); Z88.0 Allergy status to penicillin; Z88.5 Allergy status to narcotic agent; Z20.822 Contact with and (suspected) exposure to COVID-19
CPT/HCPCS: 99283; A9270-GY; U0002